=== PATIENT | female | born 1945 | race Caucasian/White ===

== ENCOUNTER 2016-07-25 21:22 | Emergency (ER) | payer MEDICARE ==
[~2016-07-25 21:22] MED LIST: ARICEPT5 PO; ATV.5; CIP5; COZAAR100 MG PO; DORZOLAMIDE2 % OPH; FERROUS SULF325 M1 PO; FLAG500TAB PO; FOLIC PO; GLUCOPHAGE1000 MG; LEVOTHYROXIN100 MCG PO; LEXAPRO20 PO; MIRAPEX5 PO; NEUR300 PO; NORV5 PO; PRILO; PROLOP100 PO; VIT D 50,000; XALAT OPH; XARELTO10 MG PO; ZOCOR20 PO; ZOFRAN4
== END 2016-07-25 21:30 | disposition home or self-care (01) ==
LOC: ER 21:22
DX: T18.128A Food in esophagus causing other injury, initial encounter (principal); I10 Essential (primary) hypertension; K21.9 Gastro-esophageal reflux disease without esophagitis; F41.9 Anxiety disorder, unspecified; E11.9 Type 2 diabetes mellitus without complications; F17.200 Nicotine dependence, unspecified, uncomplicated; Z79.899 Other long term (current) drug therapy
CPT/HCPCS: 96374; 99284; J1610